=== PATIENT | male | born 1980 | race Caucasian/White ===

== ENCOUNTER 2024-06-01 11:51 | Inpatient (IN) | payer OTHER, SELFPAY ==
[2024-05-29 12:18] VITALS: BP 144/100
--- NOTE | 2024-05-29 12:20 | ED.GENMED ---
ED Provider Triage
<Scott Andrade PA-C - Last Filed: 05/29/24 12:21>
-
Patient seen by provider in Triage?: Seen in Triage
43-year-old male presents with severe low back pain radiating down the right leg. This has been getting worse since 6 days ago. He has a history of a lumbar fusion. He has always had pain down the right leg. He feels as though something came
loose with his fusion. He denies fever. No bowel or bladder dysfunction. No perianal anesthesia
Patient screaming and moaning in triage secondary to pain. Will check x-rays of lumbar spine Toradol IM ordered. Labs pending.
Patient received a medical screening assessment by healthcare provider at triage.
Patient does warrant further evaluation
History of Present Illness
<Scott Andrade PA-C - Last Filed: 05/29/24 12:21>
General
Chief Complaint: Back Pain
Time Seen by Provider: 05/29/24 15:07
<Jay Fletcher PA-C - Last Filed: 05/29/24 21:13>
History of Present Illness
History of Present Illness:
43-year-old male presents to the emergency department for evaluation of right low back pain rating down the right leg gradually worsening over the past week. Denies any acute injury. Denies loss of bladder or bowel function or saddle anesthesias.
Has been taking Tylenol and ibuprofen without relief. Prior history of thoracic spine fusion surgery, states that he had prior symptoms that were quite comparable to his current symptoms however due to his thoracic spine problem and not lumbar
spine, this was treated by [facility]
Past History
<Scott Andrade PA-C - Last Filed: 05/29/24 12:21>
Past History
ED Past Medical History: None
ED Past Surgical History: None
Social History
Living: with family
Review of Systems
<Jay Fletchre PA-C - Last Filed: 05/29/24 21:13>
Review of Systems
Allergies reviewed?: Yes
All Other Systems: ROS reviewed and negative except as documented in HPI and ROS
Phy Exam
<Jay Fletcher PA-C - Last Filed: 05/29/24 21:13>
Physical Exam
Physical Exam:
GEN: Well appearing, NAD, WDWN
HEENT: Oral mucosa moist, no scleral icterus
Cardiac: Regular rate
Lung: No respiratory distress, no tachypnea
MSK: No gross deformity or injuries
Skin: Good color, no pallor or jaundice, no rashes
Neuro: AO x3, moves all extremities freely
Psych: Calm, cooperative
Course
<Scott Andrade PA-C - Last Filed: 05/29/24 12:21>
Orders/Labs/Results
Orders:
Orders
05/29/24 12:18
CR Lumbar Spine 2 Or 3 Views Urgent
Comment:
Reason For Exam: back pain, history of fusion
05/29/24 12:19
Ketorolac [Toradol] 30 mg IM NOW STA
05/29/24 12:28
Complete Blood Count/With Diff Urgent
Comprehensive Metabolic Panel Urgent
05/29/24 Dinner
2000 calorie (17 carb) Diabetic
At Your Request: Full Participation
Does patient need a safe tray?: No
Reason for opting out of [employer] order writing: Provider Decision
05/29/24 15:40
Cyclobenzaprine HCl [Flexeril] 10 mg PO NOW STA
HYDROmorphone [Dilaudid] 1 mg IM NOW STA
05/29/24 16:34
HYDROmorphone [Dilaudid] 0.5 mg IV NOW STA
05/29/24 17:12
Dexamethasone Sod Phosphate [Decadron] 6 mg IV NOW STA
05/29/24 17:43
Admit/Transfer Patient As Directed
Co-Sign Provider:
Level of Care: Observation services
Assign to:: Medical/Surgical
Physician / Group: Barbara
Diagnosis: Intractable Back Pain
PRN Pain Medication Management As Directed
May give lesser potent ordered pain med per pt: Yes
preference::
Protocol:: Medication orders for pain may be administered in a
manner that supports deferring to patient preference
when the pt is:
- Requesting an ordered lesser potent pain medication.
Least to most potent pain medications are defined
as: acetaminophen < NSAID < tramadol < opioids
(morphine, oxycodone, hydromorphone).
- Requesting a lesser dose of the same medication IF
ORDERED.
- Requesting a less intrusive route of administration
if both routes are prescribed by the provider (PO <
IV).
05/29/24 17:44
Code Status As Directed
Resuscitation Status: Full Code
05/29/24 19:29
Acetaminophen [Tylenol] 650 mg PO Q4HPRN PRN
Dextrose 50%-Water [Dextrose 50% Syringe] 12.5 grams IV [id number] PRN
Glucagon [GlucaGen] 1 mg IM PRN PRN
HYDROmorphone [Dilaudid] 0.5 mg IV Q3HPRN PRN
Oxycodone [Roxicodone] 5 mg PO Q4HPRN PRN
05/29/24 19:29
MR Lumbar Without Contrast Routine
Comment:
Reason For Exam: back pain, right lower ext radiculopathy
Recent pill cam endoscopy?: No
MR Thoracic Spine Without Routine
Comment:
Reason For Exam: back pain, prior T10-T11 discectomy
Recent pill cam endoscopy?: No
Activity As Directed
Activity Level: Out of Bed-Early Mobility
With Assistance
Bedside Glucose Monitoring As Directed
Frequency: AC&HS
Additional Instructions:: Change to q6h if pt on TPN, tube feeding or not eating
Sequential Compression Device [Pneumatic Compression Sleeves] As Directed
Type: Knee high
Vital Signs As Directed
Frequency: Per unit guidelines
Ot Eval And Treat Routine
Pt Eval And Treat Routine
Activity Level: Out of Bed-Early Mobility
DX Deep Vein Thrombosis Video Routine
05/29/24 19:46
Ibuprofen [Motrin] 400 mg PO Q6HPRN PRN
05/30/24 06:00
Glycohemoglobin (HgbA1c) IN AM
05/30/24 07:30
Insulin Aspart Corrective Low [Novolog Flexpen-Low Resistance] See Protocol SC AC
05/30/24 08:00
Atorvastatin [Lipitor] 20 mg PO DAILY
Duloxetine Delayed Release [Cymbalta Delayed Release] 40 mg PO DAILY
Lidocaine [Lidocaine 4% Patch] 1 patch TOPICAL DAILY
Apply Lidocaine patch(s) to:: right low back
Lisinopril [Zestril] 20 mg PO DAILY
Metformin Extended Release [Glucophage Xr Extended Release] 1,000 mg PO DAILY
MethylPREDNISolone [Medrol] 24 mg PO ONCE ONE
Pantoprazole [Protonix] 40 mg PO DAILY
05/31/24 08:00
MethylPREDNISolone [Medrol] 20 mg PO ONCE ONE
06/01/24 08:00
MethylPREDNISolone [Medrol] 16 mg PO ONCE ONE
06/02/24 08:00
MethylPREDNISolone [Medrol] 12 mg PO ONCE ONE
06/03/24 08:00
MethylPREDNISolone [Medrol] 8 mg PO ONCE ONE
06/04/24 08:00
MethylPREDNISolone [Medrol] 4 mg PO ONCE ONE
Abnormal Lab Results
05/29/24
12:28
Absolute Neuts (auto) 6.7 H 10^3/uL
(1.4-6.5)
Glucose 155 H mg/dl
(70-99)
05/29/24 12:28
05/29/24 12:28
Vital Signs
Initial and Last Documented VS:
Initial Vital Signs
Temp Pulse Resp BP Pulse Ox
98.2 F 107 20 144/100 100
05/29/24 12:18 05/29/24 12:18 05/29/24 12:18 05/29/24 12:18 05/29/24 12:18
Last Documented Vital Signs
Temp Pulse Resp BP Pulse Ox
98.1 F 94 18 147/87 94
05/29/24 19:30 05/29/24 19:30 05/29/24 19:30 05/29/24 19:30 05/29/24 19:30
<Jay Fletcher PA-C - Last Filed: 05/29/24 21:13>
Orders/Labs/Results
Orders:
Orders
05/29/24 12:18
CR Lumbar Spine 2 Or 3 Views Urgent
Comment:
Reason For Exam: back pain, history of fusion
05/29/24 12:19
Ketorolac [Toradol] 30 mg IM NOW STA
05/29/24 12:28
Complete Blood Count/With Diff Urgent
Comprehensive Metabolic Panel Urgent
05/29/24 Dinner
2000 calorie (17 carb) Diabetic
At Your Request: Full Participation
Does patient need a safe tray?: No
Reason for opting out of [employer] order writing: Provider Decision
05/29/24 15:40
Cyclobenzaprine HCl [Flexeril] 10 mg PO NOW STA
HYDROmorphone [Dilaudid] 1 mg IM NOW STA
05/29/24 16:34
HYDROmorphone [Dilaudid] 0.5 mg IV NOW STA
05/29/24 17:12
Dexamethasone Sod Phosphate [Decadron] 6 mg IV NOW STA
05/29/24 17:43
Admit/Transfer Patient As Directed
Co-Sign Provider:
Level of Care: Observation services
Assign to:: Medical/Surgical
Physician / Group: Barbara
Diagnosis: Intractable Back Pain
PRN Pain Medication Management As Directed
May give lesser potent ordered pain med per pt: Yes
preference::
Protocol:: Medication orders for pain may be administered in a
manner that supports deferring to patient preference
when the pt is:
- Requesting an ordered lesser potent pain medication.
Least to most potent pain medications are defined
as: acetaminophen < NSAID < tramadol < opioids
(morphine, oxycodone, hydromorphone).
- Requesting a lesser dose of the same medication IF
ORDERED.
- Requesting a less intrusive route of administration
if both routes are prescribed by the provider (PO <
IV).
05/29/24 17:44
Code Status As Directed
Resuscitation Status: Full Code
05/29/24 19:29
Acetaminophen [Tylenol] 650 mg PO Q4HPRN PRN
Dextrose 50%-Water [Dextrose 50% Syringe] 12.5 grams IV [id number] PRN
Glucagon [GlucaGen] 1 mg IM PRN PRN
HYDROmorphone [Dilaudid] 0.5 mg IV Q3HPRN PRN
Oxycodone [Roxicodone] 5 mg PO Q4HPRN PRN
05/29/24 19:29
MR Lumbar Without Contrast Routine
Comment:
Reason For Exam: back pain, right lower ext radiculopathy
Recent pill cam endoscopy?: No
MR Thoracic Spine Without Routine
Comment:
Reason For Exam: back pain, prior T10-T11 discectomy
Recent pill cam endoscopy?: No
Activity As Directed
Activity Level: Out of Bed-Early Mobility
With Assistance
Bedside Glucose Monitoring As Directed
Frequency: AC&HS
Additional Instructions:: Change to q6h if pt on TPN, tube feeding or not eating
Sequential Compression Device [Pneumatic Compression Sleeves] As Directed
Type: Knee high
Vital Signs As Directed
Frequency: Per unit guidelines
Ot Eval And Treat Routine
Pt Eval And Treat Routine
Activity Level: Out of Bed-Early Mobility
DX Deep Vein Thrombosis Video Routine
05/29/24 19:46
Ibuprofen [Motrin] 400 mg PO Q6HPRN PRN
05/30/24 06:00
Glycohemoglobin (HgbA1c) IN AM
05/30/24 07:30
Insulin Aspart Corrective Low [Novolog Flexpen-Low Resistance] See Protocol SC AC
05/30/24 08:00
Atorvastatin [Lipitor] 20 mg PO DAILY
Duloxetine Delayed Release [Cymbalta Delayed Release] 40 mg PO DAILY
Lidocaine [Lidocaine 4% Patch] 1 patch TOPICAL DAILY
Apply Lidocaine patch(s) to:: right low back
Lisinopril [Zestril] 20 mg PO DAILY
Metformin Extended Release [Glucophage Xr Extended Release] 1,000 mg PO DAILY
MethylPREDNISolone [Medrol] 24 mg PO ONCE ONE
Pantoprazole [Protonix] 40 mg PO DAILY
05/31/24 08:00
MethylPREDNISolone [Medrol] 20 mg PO ONCE ONE
06/01/24 08:00
MethylPREDNISolone [Medrol] 16 mg PO ONCE ONE
06/02/24 08:00
MethylPREDNISolone [Medrol] 12 mg PO ONCE ONE
06/03/24 08:00
MethylPREDNISolone [Medrol] 8 mg PO ONCE ONE
06/04/24 08:00
MethylPREDNISolone [Medrol] 4 mg PO ONCE ONE
Abnormal Lab Results
05/29/24
12:28
Absolute Neuts (auto) 6.7 H 10^3/uL
(1.4-6.5)
Glucose 155 H mg/dl
(70-99)
05/29/24 12:28
05/29/24 12:28
Vital Signs
Initial and Last Documented VS:
Initial Vital Signs
Temp Pulse Resp BP Pulse Ox
98.2 F 107 20 144/100 100
05/29/24 12:18 05/29/24 12:18 05/29/24 12:18 05/29/24 12:18 05/29/24 12:18
Last Documented Vital Signs
Temp Pulse Resp BP Pulse Ox
98.1 F 94 18 147/87 94
05/29/24 19:30 05/29/24 19:30 05/29/24 19:30 05/29/24 19:30 05/29/24 19:30
<Jay Fletcher PA-C - Last Filed: 05/29/24 21:13>
MDM/Problems Addressed
MDM/Problems Addressed:
I am essentially unable to assess the patient due to his degree of pain. He does not have appear to have any lower extremity neurologic deficits but is unable to move the leg without excruciating pain throughout most of exam. He does have skin
paresthesias but no gross neurologic deficits. No hard signs of spinal cord compression that would warrant urgent MRI. After multiple rounds of opioids and NSAIDs his pain remained uncontrolled and he was unable to stand. Certainly his morbid
obesity plays a role in the symptoms. Unfortunately will require admission for further pain control.
<Jay Fletcher PA-C - Last Filed: 05/29/24 21:13>
*Critical Care Note
Total Time (30-74mins, 75-104mins- exclusive of procedures): Not Applicable
ED Attending Note
<Scott Andrade PA-C - Last Filed: 05/29/24 12:21>
-
Portions of this chart may have been created with voice recognition software.� Occasional wrong word or��sound alike� substitutions may have occurred due to the inherent limitations of voice recognition software.
Discharge Plan
Departure
Patient Disposition: Admit
Date of Disposition: 05/29/24
Time of Disposition: 17:12
Admit to: Med/Surg
Presentation/result/management discussed w/ accepting MD/DO: Hospitalist
Discharge Problem:
Intractable low back pain
Interventions
Interventions:
*Risk Screen - Suicide Last Done: 05/29/24 20:28
*General Assessment Last Done: 05/29/24 12:18
ED- Fall Risk Assessment Last Done: 05/29/24 14:30
*ED COVID-19 Vaccine History Last Done: 05/29/24 20:28
*Nursing Disposition Last Done: 05/29/24 19:31
ED-Musculoskeletal Assessment Last Done: 05/29/24 13:24
Discharge Date and Time
Discharge Date/Time: 05/29/24 19:31
[2024-05-29] MEDS: TORADOL 30 MG IM (12:29)
[2024-05-29 12:41] LABS: % Basophils 0.3 % (0-2); % Eosinophils 1.8 % (0-6); % Immature Granulocytes 0.4 % (0-0.5); % Lymphocytes 26.1 % (20.5-51.1); % Monocytes 3.5 % (1.7-9.3); % Neutrophils 67.9 % (42.2-75.2); Absolute Eosinophils 0.2 10^3/uL (0-0.7); Absolute Lymphocytes 2.6 10^3/uL (1.2-3.4); Absolute Monocytes 0.4 10^3/uL (0.1-0.6); Absolute Neutrophils 6.7 10^3/uL (1.4-6.5); Hematocrit 44.6 % (39.0-52.0); Mean Corp Hgb Conc. 33.6 g/dL (33.0-37.0); Mean Corpuscular Hgb 27.5 pg (27.0-31.0); Mean Corpuscular Volume 81.8 fL (80.0-94.0); Mean Platelet Volume 9.7 fL (7.4-10.4); Nucleated Red Blood Cells % 0 % (-); Platelet Count 308 10^3/uL (130-400); Red Blood Cell Count 5.45 10^6/uL (4.70-6.10); Red Cell Dist. Width 13.9 % (11.5-14.5); White Blood Cell Count 9.9 10^3/uL (4.8-10.8)
[2024-05-29 12:52] LABS: ALT (SGPT) 24 U/L (0-50); AST (SGOT) 24 U/L (17-59); Albumin 4.8 g/dl (3.5-5.0); Alkaline Phosphatase 101 U/L (38-126); Blood Urea Nitrogen 13 mg/dl (9-20); Calcium 10.1 mg/dl (8.4-10.2); Carbon Dioxide 23 mmol/L (22-30); Chloride 102 mmol/L (98-107); Glucose 155 mg/dl (70-99); Potassium 4.1 mmol/L (3.5-5.1); Sodium 140 mmol/L (135-145); Total Bilirubin 0.6 mg/dl (0.2-1.3); Total Protein 7.6 g/dl (6.3-8.2); eGFR > 60.00
[2024-05-29] MEDS: DILAUDID 1 MG IM (15:50)
[2024-05-29] MEDS: FLEXERIL 10 MG PO (15:50)
[2024-05-29] MEDS: DILAUDID 0.5 MG IV ×3 (16:39→23:38)
[2024-05-29] MEDS: DECADRON 6 MG IV (17:18)
[2024-05-29 17:20] VITALS: BP 150/79
--- NOTE | 2024-05-29 17:51 | HPS.HSE ---
Family Physician
-
Family Physician: Adis Lind
Chief Complaint
-
Intractable Back Pain
History of Present Illness
Patient is a 43 y/o male past medical history of hypertension, hyperlipidemia, diabetes mellitus, and prior T10-T11 discectomy/spinal canal decompression who presents with back pain radiating down the right leg. Patient reports since his prior
surgery he has always had some right low back pain with radiation down to the buttocks and right toes. He reports since last week the pain has been much worse. He notes when he tries to move the right leg, or puts weight on the leg he had severe
pain. He denies numbness or tingling. He denies saddle anesthesia, bowel/bladder incontinence.
Medical History
Past Medical History
Past Medical History: Reports Other
Additional Past Medical History:
Essential Hypertension
Hyperlipidemia
Diabetes Mellitus
Depression
GERD
Past Surgical History: Reports Other
Additional Past Surgical History:
T10-T11 Discectomy/Spinal Canal Decompression with multiple complications including pneumothorax, ileus/possible bowel perforation resulting in right hemicolectomy
Social History
Tobacco: Non-smoker
Alcohol: Former (Sober since 2021)
Family History
Family History: Not pertinent
Allergies / Home Medications
Allergies reflects when Allergies were last updated in [facility].
Home Medications with original date entered in [facility]
Allergy/Medication List:
Allergies
Allergy/AdvReac Type Severity Reaction Status Date / Time
No Known Allergies Allergy Verified 05/29/24 12:21
Home Medications
duloxetine 20 mg capsule,delayed release 40 mg PO DAILY 01/12/17
acetaminophen 500 mg tablet 1,000 mg PO Q6HPRN PRN mild pain 05/29/24
atorvastatin 20 mg tablet 20 mg PO DAILY 05/29/24
ibuprofen 200 mg tablet 200 mg PO Q6HPRN PRN mild pain 05/29/24
lisinopril 20 mg-hydrochlorothiazide 12.5 mg tablet 1 tab PO DAILY 05/29/24
metformin 500 mg tablet,extended release 24 hr 1,000 mg PO DAILY 05/29/24
omeprazole 20 mg capsule,delayed release 20 mg PO DAILY 05/29/24
Review of Systems
-
A 12 point ROS was completed and negative except as noted: Yes
Constitutional: Denies Fever or Chills
Respiratory: Denies Cough or Trouble Breathing
Cardiac: Denies Chest Pain or Palpitations
Musculoskeletal: Reports See HPI
Physical Exam
Vital Signs
Vital Signs
Temp Pulse Resp BP Pulse Ox
98.2 F 83 18 150/79 94
05/29/24 12:18 05/29/24 17:20 05/29/24 17:20 05/29/24 17:20 05/29/24 17:20
Physical Exam
General: Well Developed, Well Nourished, Pain (With Movement) and Obese
HEENT: Anicteric and Moist mucous membranes
Respiratory: Clear and Non Labored Respirations
Cardiac: S1/S2 and Regular Rhythm
GI: Soft
Rectal: Deferred by Provider
Musculoskeletal: No Clubbing, No Cyanosis, No Edema and Other (Mild tenderness to palpitation lumbar region; Movement of right leg causes worsening pain )
Skin: Warm and Dry
Neuro: Awake, Alert and Oriented
Psych: Calm
Laboratory Results
-
05/29/24 12:28
05/29/24 12:28
Laboratory Results
Total Bilirubin 0.6 mg/dl (0.2-1.3) 05/29/24 12:28
AST 24 U/L (17-59) 05/29/24 12:28
ALT 24 U/L (0-50) 05/29/24 12:28
Alkaline Phosphatase 101 U/L (38-126) 05/29/24 12:28
Data Reviewed
-
Diagnostic Radiology: Report Reviewed by me
Lab Data: Labs Reviewed by me
Impression/Plan
-
Intractable Back Pain with Radiculopathy, concerning for herniated disc
-Check Thoracic/Lumbar Spine MRI
-Continue steroids with Medrol Dose Pack
-Add Lidocaine Patch
-Continue ibuprofen for mild pain, oxycodone for moderate pain, and Dilaudid for severe
Essential Hypertension
-Continue lisinopril/HCTZ
Hyperlipidemia
-Continue atorvastatin
Diabetes Mellitus, Type II
-Continue metformin
-Monitor sugars and continue coverage insulin
Depression
-Continue duloxetine
GERD
-Continue Protonix
DVT proph: SCDs
Code Status: Full Code
--- NOTE | 2024-05-29 17:52 | W.PN.UPDATE ---
Update Note
Progress Note Update
This is an addendum to the H&P written by Ananya Christine on 05/29/2024. Patient seen and examined independently with PA.
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
hypertension, hyperlipidemia, diabetes presenting with acute on chronic severe right lower back pain rating down the right leg. No fever, bowel or bladder dysfunction or perianal anesthesia.
Strength and reflexes of lower extremities normal.
Lumbar spine x-ray shows chronic degenerative changes of the lumbar spine.
Patient with severe right-sided lumbar radiculopathy concerning for herniated disc. Patient given ketorolac, cyclobenzaprine, Dilaudid dexamethasone for pain. Check thoracic and lumbar MRI. Medrol Dosepak, ibuprofen, oxycodone, Dilaudid,
lidocaine patch for pain.
[2024-05-29 19:16] VITALS: BP 117/61
[2024-05-29 19:30] VITALS: BP 147/87; BMI 45.5
[2024-05-29 21:40] LABS: Glucose - Point of Care 198 mg/dl (70-99)
--- NOTE | 2024-05-29 22:46 | PTCARENOTE ---
Received pt from ED at changed of shift, awake, alert, oriented. Pt unable to stand and transfer due to right lower back and leg pain. Pt medicated for pain upon admission to unit. Skin intact. Vitals stable. Pt oriented to room and instructed to
call for assistance. Plan of care reviewed with pt. Pt currently resting more comfortably in bed, pain controlled.
[2024-05-29 23:00] VITALS: BP 147/80
[2024-05-29] MEDS: MOTRIN 400 MG PO (23:35)
[2024-05-30] MEDS: DILAUDID 0.5 MG IV ×3 (03:31→21:34)
--- NOTE | 2024-05-30 04:53 | PTCARENOTE ---
Pt had MRI, tolerated procedure. Increased lower back pain post MRI. Pt medicated for pain pre MRI. Pt currently resting in bed, ice applied to lower back per pt request.
[2024-05-30] MEDS: ROXICODONE 5 MG PO ×2 (05:22→14:47)
[2024-05-30 08:04] LABS: Glucose - Point of Care 134 mg/dl (70-99)
[2024-05-30] MEDS: NOVOLOG FLEXPEN-LOW RESISTANCE SC (08:07)
[2024-05-30 08:08] VITALS: BP 140/76
[2024-05-30] MEDS: CYMBALTA DELAYED RELEASE 40 MG PO (08:10)
[2024-05-30] MEDS: LIPITOR 20 MG PO (08:10)
[2024-05-30] MEDS: ORETIC 12.5 MG PO (08:10)
[2024-05-30] MEDS: PROTONIX 40 MG PO (08:10)
[2024-05-30] MEDS: GLUCOPHAGE XR EXTENDED RELEASE 1000 MG PO (08:10)
[2024-05-30] MEDS: ZESTRIL 20 MG PO (08:11)
[2024-05-30] MEDS: LIDOCAINE 4% PATCH 1 PATCH TOPICAL (08:11)
[2024-05-30] MEDS: MOTRIN 400 MG PO (08:12)
[2024-05-30 08:38] LABS: Glycohemoglobin (HgbA1c) 7.4 % (4.0-5.6)
[2024-05-30] MEDS: MEDROL 24 MG PO (08:58)
[2024-05-30 09:22] VITALS: BP 144/86; PULSE 93; O2SAT 99
[2024-05-30 09:57] VITALS: BP 144/86; PULSE 95; O2SAT 100
--- NOTE | 2024-05-30 10:36 | W.PN.HOSP.TC ---
Today's Communication/Plan
-
Await lumbar spine
Start gabapentin
Rehabilitation
Pain control
Assessment / Plan
Assessment / Plan
#Intractable Back Pain likely secondary to radiculopathy
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
-Lumbar spine MRI is pending.
-Thoracic spine MRI showed Chronic degenerative and postoperative changes of the thoracic spine. Findings appear relatively stable compared to the previous thoracic spine MRI from 02/07/2022.
-Continue steroids with Medrol Dose Pack
-Add Lidocaine Patch
-Continue ibuprofen for mild pain, oxycodone for moderate pain, and Dilaudid for severe
-starte gabapentin
Essential Hypertension
-Continue lisinopril/HCTZ
Hyperlipidemia
-Continue atorvastatin
Diabetes Mellitus, Type II
-hold metformin
-Monitor sugars and continue coverage insulin
-A1C 7.4
Depression
-Continue duloxetine
GERD
-Continue Protonix
Morbid obesity due to excess calories
-Would benefit from weight loss.
DVT proph: SCDs
Code Status: Full Code
d/w with family member at bedside
Anticipated Discharge: Within 24 hours
Subjective/Interval History
-
Date of Service: May 30, 2024
states of R side back pain radiating to thigh and knee
Objective Data
-
Vital Signs:
Vital Signs
Temp Pulse Resp BP Pulse Ox
97.6 F 92 16 140/76 98
05/30/24 08:08 05/30/24 08:08 05/30/24 08:08 05/30/24 08:11 05/30/24 08:08
I&O
05/29/24 05/30/24 05/31/24
06:59 06:59 06:59
Intake Total 480 / 480
Output Total 175 / 175
Balance 305 / 305
Physical Exam
-
General: Well Developed, Well Nourished, No Apparent Distress and Morbidly Obese
HEENT: Normocephalic, Atraumatic and Moist Mucous Membranes
Respiratory: Clear to Auscultation
Cardiac: Regular Rhythm and S1/S2; Negative Murmur, Rub or Gallop
GI: Soft, Nontender, Nondistended and Normal Bowel Sounds; Negative Organomegaly
Rectal: Deferred by Provider
Genito-urinary: Other
Musculoskeletal: No Clubbing, No Cyanosis, No Edema and Other (NO STEP OFF Thoraic/lumbar area. Non TTP paraspinal region. )
Skin: Negative Rash
Neuro: Awake, Alert, Oriented, AO x 3, No Motor Deficits and Nonfocal/Grossly Intact
Psych: Calm
Data Reviewed
-
Total Time Spent with Patient (in minutes): 55
[2024-05-30 12:30] LABS: Glucose - Point of Care 170 mg/dl (70-99)
[2024-05-30] MEDS: NEURONTIN 300 MG PO ×3 (13:36→21:35)
[2024-05-30] MEDS: NOVOLOG FLEXPEN-LOW RESISTANCE 1 UNITS SC ×2 (13:36→16:59)
--- NOTE | 2024-05-30 13:37 | CM ---
Patient seen bedside.
IA completed.
LOPES completed.
Spouse bedside.
Patient lives in 2 story home with 3 steps to enter.
Patient independent prior to admission, ambulates with RW or cane, does have WC in the home.
Patient had VN in the past, maybe [facility] or [facility].
Patient denies home care needs at this time.
[facility].
Spouse will transport home.
PCP: Dr Lind
Pharmacy: [facility]
Plan: home no needs anticipated.
--- NOTE | 2024-05-30 14:05 | PTCARENOTE ---
Received pt from 1 acute care via stretcher. Pt ambulated to bed independently with walking sticks. HR and BP elevated, will recheck. AAOX3. Pt c/o pain throughout right side lower back that radiates down right leg and up right side of back, pt able
to tolerate. Assessed and oriented to room. Pt verbalized understanding of call eubanks. Call eubanks within close reach. Will cont to monitor.
[2024-05-30 14:09] VITALS: BMI 44.9
[2024-05-30 14:13] VITALS: BP 153/93
[2024-05-30 16:17] LABS: Glucose - Point of Care 166 mg/dl (70-99)
[2024-05-30 16:32] VITALS: BP 129/84
[2024-05-30 21:42] LABS: Glucose - Point of Care 160 mg/dl (70-99)
[2024-05-30 23:40] VITALS: BP 139/77
[2024-05-31 07:34] VITALS: BP 155/95
[2024-05-31 08:27] LABS: Glucose - Point of Care 115 mg/dl (70-99)
[2024-05-31] MEDS: LIDOCAINE 4% PATCH TOPICAL (09:42)
[2024-05-31] MEDS: CYMBALTA DELAYED RELEASE 40 MG PO (09:42)
[2024-05-31] MEDS: ORETIC 12.5 MG PO (09:43)
[2024-05-31] MEDS: NEURONTIN 300 MG PO (09:43)
[2024-05-31] MEDS: ZESTRIL 20 MG PO (09:43)
[2024-05-31] MEDS: PROTONIX 40 MG PO (09:43)
[2024-05-31] MEDS: LIPITOR 20 MG PO (09:43)
[2024-05-31] MEDS: ROXICODONE 5 MG PO ×3 (09:48→20:23)
[2024-05-31] MEDS: MEDROL 20 MG PO (09:50)
[2024-05-31] MEDS: NOVOLOG FLEXPEN-LOW RESISTANCE SC (10:02)
[2024-05-31] MEDS: DILAUDID 0.5 MG IV ×2 (10:42→16:47)
[2024-05-31] MEDS: MOTRIN 400 MG PO ×2 (10:43→16:47)
[2024-05-31 11:44] LABS: Glucose - Point of Care 162 mg/dl (70-99)
--- NOTE | 2024-05-31 12:24 | W.PN.HOSP.TC ---
Today's Communication/Plan
-
Pain control
Out of bed with physical therapy
Bowel regimen
Increase Neurontin
PT/OT
Assessment / Plan
Assessment / Plan
#Intractable Back Pain likely secondary to lumbar radiculopathy 2/2 discogenic disease
#thoracic/lumbar disc protrusions status post T10-11 discectomy and partial corpectomy in 2021 at [place]
-Lumbar spine MRI reviewed
-Thoracic spine MRI showed Chronic degenerative and postoperative changes of the thoracic spine. Findings appear relatively stable compared to the previous thoracic spine MRI from 02/07/2022
-Continue steroids with Medrol Dose Pack. Monitor for 24 hours. If no improvement can probably stop steroids.
-Offered patient to discuss epidural injection. Patient currently stated he had tried that in the past without any significant improvement.
-Add Lidocaine Patch
-Continue ibuprofen for mild pain, oxycodone for moderate pain, and Dilaudid for severe
-Started on Neurontin. Dose increased to 40 mg.
Essential Hypertension
-Continue lisinopril/HCTZ
Hyperlipidemia
-Continue atorvastatin
Diabetes Mellitus, Type II
-hold metformin
-Monitor sugars and continue coverage insulin
-A1C 7.4
Depression
-Continue duloxetine
GERD
-Continue Protonix
Morbid obesity due to excess calories
-Would benefit from weight loss.
DVT proph: SCDs
Code Status: Full Code
Anticipated Discharge: Within 24 hours
Subjective/Interval History
-
Date of Service: May 31, 2024
States of intermittent R thigh pain radiating to knee from back
Objective Data
-
Vital Signs:
Vital Signs
Temp Pulse Resp BP Pulse Ox
97.5 F 82 19 155/95 97
05/31/24 07:34 05/31/24 07:34 05/31/24 07:34 05/31/24 07:34 05/31/24 07:34
I&O
05/30/24 05/31/24 06/01/24
06:59 06:59 06:59
Intake Total 480 / 480 800 / 800
Output Total 175 / 175
Balance 305 / 305 800 / 800
Physical Exam
-
General: Well Developed, Well Nourished, No Apparent Distress and Morbidly Obese
HEENT: Normocephalic, Atraumatic and Moist Mucous Membranes
Respiratory: Clear to Auscultation
Cardiac: Regular Rhythm and S1/S2; Negative Murmur, Rub or Gallop
GI: Soft, Nontender, Nondistended and Normal Bowel Sounds; Negative Organomegaly
Rectal: Deferred by Provider
Genito-urinary: Other
Musculoskeletal: No Clubbing, No Cyanosis, No Edema and Other (NO STEP OFF Thoraic/lumbar area. Non TTP paraspinal region. )
Skin: Negative Rash
Neuro: Awake, Alert, Oriented, AO x 3, No Motor Deficits and Nonfocal/Grossly Intact
Psych: Calm
Data Reviewed
-
MRI: Report Reviewed by me and Discussed with Patient
[2024-05-31] MEDS: DULCOLAX 10 MG PO (12:48)
[2024-05-31] MEDS: SENOKOT-S 1 TABLET PO ×2 (12:48→20:21)
[2024-05-31] MEDS: NOVOLOG FLEXPEN-LOW RESISTANCE 1 UNITS SC (12:50)
[2024-05-31] MEDS: FLEXERIL 10 MG PO (12:55)
[2024-05-31 15:07] VITALS: BP 149/85
[2024-05-31 16:43] LABS: Glucose - Point of Care 257 mg/dl (70-99)
[2024-05-31] MEDS: NEURONTIN 400 MG PO ×2 (16:47→22:02)
[2024-05-31] MEDS: NOVOLOG FLEXPEN-LOW RESISTANCE 3 UNITS SC (16:49)
--- NOTE | 2024-05-31 19:38 | PTCARENOTE ---
RN provided patient with education on all medications, pain management, and plan of care this shift. RN also explained PRN medications versus scheduled medication administration, specifically for pain medication. Patient was consistently in 8/10
right leg pain for the first half of the shift. RN reached out to MD for a 1x order for Flexeril, as patient felt that this might help. RN gave PRN ibuprofen, Dilaudid, and oxycodone per order and according to patients pain all shift. Of note,
patient took 2 long naps and vocalized that he 'missed' his pain medication administration. RN told patient that if he is able to sleep, opioid administration is not a safe practice, as they can cause sedation.
[2024-05-31 21:04] LABS: Glucose - Point of Care 182 mg/dl (70-99)
[2024-05-31 23:45] VITALS: BP 143/85
[2024-06-01] MEDS: ROXICODONE 5 MG PO ×3 (00:29→08:31)
[2024-06-01 08:00] VITALS: BP 124/84
[2024-06-01] MEDS: NOVOLOG FLEXPEN-LOW RESISTANCE SC ×3 (08:08→18:12)
[2024-06-01 08:12] LABS: Glucose - Point of Care 127 mg/dl (70-99)
[2024-06-01] MEDS: PROTONIX 40 MG PO (08:17)
[2024-06-01] MEDS: CYMBALTA DELAYED RELEASE 40 MG PO (08:17)
[2024-06-01] MEDS: SENOKOT-S 1 TABLET PO ×2 (08:18→21:12)
[2024-06-01] MEDS: GLUCOPHAGE XR EXTENDED RELEASE 1000 MG PO (08:18)
[2024-06-01] MEDS: ZESTRIL 20 MG PO (08:18)
[2024-06-01] MEDS: LIPITOR 20 MG PO (08:19)
[2024-06-01] MEDS: ORETIC 12.5 MG PO (08:19)
[2024-06-01] MEDS: NEURONTIN 400 MG PO (08:19)
[2024-06-01] MEDS: LIDOCAINE 4% PATCH TOPICAL (08:20)
[2024-06-01] MEDS: MEDROL 16 MG PO (08:28)
[2024-06-01 08:44] VITALS: BP 107/76
[2024-06-01 09:28] LABS: Blood Urea Nitrogen 22 mg/dl (9-20); Calcium 8.8 mg/dl (8.4-10.2); Carbon Dioxide 31 mmol/L (22-30); Chloride 99 mmol/L (98-107); Estimated Creatinine Clearance > 125 ml/min; Glucose 134 mg/dl (70-99); Potassium 4.2 mmol/L (3.5-5.1); Sodium 138 mmol/L (135-145); eGFR > 60.00
[2024-06-01 11:24] LABS: Glucose - Point of Care 136 mg/dl (70-99)
--- NOTE | 2024-06-01 11:44 | W.PN.HOSP.TC ---
Today's Communication/Plan
-
dc steroids/gabapentin
cont duloxetine
added flexeril
bowel regimen
Assessment / Plan
Assessment / Plan
#Intractable Back Pain likely secondary to lumbar radiculopathy 2/2 discogenic disease
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
-Lumbar spine MRI reviewed
-Thoracic spine MRI showed Chronic degenerative and postoperative changes of the thoracic spine. Findings appear relatively stable compared to the previous thoracic spine MRI from 02/07/2022
-Does not seem steroids was helping-Dced.
-Offered patient to discuss epidural injection. Patient currently stated he had tried that in the past without any significant improvement.
-Add Lidocaine Patch
-Continue ibuprofen for mild pain, oxycodone for moderate pain, and Dilaudid for severe
-Dced neurotonin. Started flexeril
Essential Hypertension
-Continue lisinopril/HCTZ. Cr stable at 0.9
Hyperlipidemia
-Continue atorvastatin
Diabetes Mellitus, Type II
-hold metformin
-Monitor sugars and continue coverage insulin
-A1C 7.4
Depression
-Continue duloxetine
GERD
-Continue Protonix
Morbid obesity due to excess calories
-Would benefit from weight loss.
DVT proph: SCDs
Code Status: Full Code
Anticipated Discharge: Within 24 hours
Subjective/Interval History
-
Date of Service: June 01, 2024
States of R hip muscular pain after walking
states of back pain
patient remains in bed
Objective Data
-
Labs:
Laboratory Results
06/01/24
09:05
Sodium 138
Potassium 4.2
Chloride 99
Carbon Dioxide 31 H
BUN 22 H
Creatinine 0.9
Glucose 134 H
Calcium 8.8
Vital Signs:
Vital Signs
Temp Pulse Resp BP Pulse Ox
97.9 F 101 20 107/76 98
06/01/24 08:44 06/01/24 08:44 06/01/24 08:44 06/01/24 08:44 06/01/24 08:44
I&O
05/31/24 06/01/24 06/02/24
06:59 06:59 06:59
Intake Total 800 / 800 480 / 480
Balance 800 / 800 480 / 480
Physical Exam
-
General: Well Developed, Well Nourished, No Apparent Distress, Morbidly Obese and Other (disshelved )
HEENT: Normocephalic, Atraumatic and Moist Mucous Membranes
Respiratory: Clear to Auscultation
Cardiac: Regular Rhythm and S1/S2; Negative Murmur, Rub or Gallop
GI: Soft, Nontender, Nondistended and Normal Bowel Sounds; Negative Organomegaly
Rectal: Deferred by Provider
Genito-urinary: Other
Musculoskeletal: No Clubbing, No Cyanosis, No Edema and Other (NO STEP OFF Thoraic/lumbar area. Non TTP paraspinal region. )
Skin: Negative Rash
Neuro: Awake, Alert, Oriented, AO x 3, No Motor Deficits and Nonfocal/Grossly Intact
Psych: Calm
Data Reviewed
-
Total Time Spent with Patient (in minutes): 52
[2024-06-01] MEDS: MILK OF MAGNESIA 30 ML PO (11:58)
[2024-06-01] MEDS: DILAUDID 0.5 MG IV (11:58)
[2024-06-01] MEDS: ROXICODONE 7.5 MG PO ×2 (15:46→20:03)
[2024-06-01] MEDS: FLEXERIL 10 MG PO ×2 (15:49→21:12)
[2024-06-01 16:36] VITALS: BP 167/89
[2024-06-01] MEDS: LOVENOX 40 MG SC (17:47)
--- NOTE | 2024-06-01 17:54 | PTCARENOTE ---
Patient administered PRN pain meds throughout shift for back and R leg pain. Worked with PT during shift. MD aware of patients continued c/o pain- new order for hip X ray.
[2024-06-01 18:04] LABS: Glucose - Point of Care 121 mg/dl (70-99)
[2024-06-01 21:11] LABS: Glucose - Point of Care 162 mg/dl (70-99)
[2024-06-01 23:25] VITALS: BP 111/76
[2024-06-02] MEDS: ROXICODONE 7.5 MG PO ×4 (00:13→20:27)
[2024-06-02 07:11] LABS: Glucose - Point of Care 128 mg/dl (70-99)
[2024-06-02] MEDS: NOVOLOG FLEXPEN-LOW RESISTANCE SC ×3 (07:12→17:38)
[2024-06-02 08:16] VITALS: BP 124/83
[2024-06-02] MEDS: LIDOCAINE 4% PATCH TOPICAL (08:27)
[2024-06-02] MEDS: SENOKOT-S 1 TABLET PO ×2 (08:32→20:28)
[2024-06-02] MEDS: GLUCOPHAGE XR EXTENDED RELEASE 1000 MG PO (08:32)
[2024-06-02] MEDS: FLEXERIL 10 MG PO ×3 (08:32→21:47)
[2024-06-02] MEDS: ORETIC 12.5 MG PO (08:32)
[2024-06-02] MEDS: CYMBALTA DELAYED RELEASE 40 MG PO (08:32)
[2024-06-02] MEDS: PROTONIX 40 MG PO (08:32)
[2024-06-02] MEDS: LIPITOR 20 MG PO (08:32)
[2024-06-02] MEDS: ZESTRIL 20 MG PO (08:33)
[2024-06-02 12:00] LABS: Glucose - Point of Care 121 mg/dl (70-99)
--- NOTE | 2024-06-02 12:49 | W.PN.HOSP.TC ---
Today's Communication/Plan
-
pain control
bowel regimen
OOB/PT
IRAD for PING
Assessment / Plan
Assessment / Plan
#Intractable Back Pain likely secondary to lumbar radiculopathy 2/2 discogenic disease
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
-Lumbar spine MRI reviewed
-Thoracic spine MRI showed Chronic degenerative and postoperative changes of the thoracic spine. Findings appear relatively stable compared to the previous thoracic spine MRI from 02/07/2022
-Does not seem steroids was helping-Dced.
-Add Lidocaine Patch
-Continue ibuprofen for mild pain, oxycodone for moderate pain , and Dilaudid for severe
-Dced neurotonin. Started flexeril 10mg TID.
-R Hip xray negative for fracture.
-After much prolonged discussion patient did agree to undergo epidural steroid injection as patient with not significant improvement with conservative measures. Which he initially refused. Now patient is agreeable and amenable. [facility] consulted
for PING. Per IRAD likely tomm.
-Recommend to continue with OOB/PT/Sit in chair.
Essential Hypertension
-Continue lisinopril/HCTZ. Cr stable at 0.9
Hyperlipidemia
-Continue atorvastatin
Diabetes Mellitus, Type II
-hold metformin
-Monitor sugars and continue coverage insulin
-A1C 7.4
Depression
-Continue duloxetine
GERD
-Continue Protonix
Morbid obesity due to excess calories
-Would benefit from weight loss. Affects all aspects of medical care.
DVT proph: SCDs/lovenox
Code Status: Full Code
Anticipated Discharge: 24 - 48 hours
Subjective/Interval History
-
Date of Service: June 02, 2024
states had bm earlier today
was unable to move on toilet and needed assistance.
states remains with R side back pain wtih radiation to knee
Objective Data
-
Vital Signs:
Vital Signs
Temp Pulse Resp BP Pulse Ox
97.6 F 102 18 124/83 96
06/02/24 08:16 06/02/24 08:16 06/02/24 08:16 06/02/24 08:16 06/02/24 08:16
I&O
06/01/24 06/02/24 06/03/24
06:59 06:59 06:59
Intake Total 480 / 480 1420 / 1420
Output Total 100 / 100
Balance 480 / 480 1320 / 1320
Physical Exam
-
General: Well Developed, Well Nourished, No Apparent Distress, Morbidly Obese and Other (disshelved )
HEENT: Normocephalic, Atraumatic and Moist Mucous Membranes
Respiratory: Clear to Auscultation
Cardiac: Regular Rhythm and S1/S2; Negative Murmur, Rub or Gallop
GI: Soft, Nontender, Nondistended and Normal Bowel Sounds; Negative Organomegaly
Rectal: Deferred by Provider
Genito-urinary: Other
Musculoskeletal: No Clubbing, No Cyanosis, No Edema and Other (NO STEP OFF Thoraic/lumbar area. Non TTP paraspinal region. )
Skin: Negative Rash
Neuro: Awake, Alert, Oriented, AO x 3, No Motor Deficits and Nonfocal/Grossly Intact
Psych: Calm
Data Reviewed
-
Total Time Spent with Patient (in minutes): 51
[2024-06-02 16:28] VITALS: BP 125/76
[2024-06-02] MEDS: LOVENOX 40 MG SC (17:13)
[2024-06-02] MEDS: TYLENOL 1000 MG PO ×2 (17:13→21:47)
[2024-06-02 17:42] LABS: Glucose - Point of Care 142 mg/dl (70-99)
[2024-06-02 21:43] LABS: Glucose - Point of Care 125 mg/dl (70-99)
[2024-06-02 22:54] VITALS: BP 112/70
[2024-06-03] MEDS: ROXICODONE 7.5 MG PO ×4 (03:37→18:46)
[2024-06-03 06:49] VITALS: BP 98/65
[2024-06-03 07:21] LABS: % Basophils 0.3 % (0-2); % Eosinophils 0.6 % (0-6); % Immature Granulocytes 0.5 % (0-0.5); % Lymphocytes 16.4 % (20.5-51.1); % Monocytes 5.2 % (1.7-9.3); Absolute Eosinophils 0.1 10^3/uL (0-0.7); Absolute Immature Granulocytes 0.1 10^3/uL (0-0.05); Absolute Lymphocytes 2.1 10^3/uL (1.2-3.4); Absolute Monocytes 0.7 10^3/uL (0.1-0.6); Absolute Neutrophils 9.7 10^3/uL (1.4-6.5); Hematocrit 46.3 % (39.0-52.0); Hemoglobin 15.2 g/dL (13.0-18.0); Mean Corp Hgb Conc. 32.8 g/dL (33.0-37.0); Mean Corpuscular Hgb 27.8 pg (27.0-31.0); Mean Corpuscular Volume 84.8 fL (80.0-94.0); Mean Platelet Volume 9.9 fL (7.4-10.4); Nucleated Red Blood Cells % 0 % (-); Platelet Count 280 10^3/uL (130-400); Red Blood Cell Count 5.46 10^6/uL (4.70-6.10); White Blood Cell Count 12.5 10^3/uL (4.8-10.8)
[2024-06-03 07:29] LABS: INR 0.99; PT 13.4 Sec (11.4-14.6)
[2024-06-03 07:36] LABS: Glucose - Point of Care 134 mg/dl (70-99)
[2024-06-03] MEDS: NOVOLOG FLEXPEN-LOW RESISTANCE SC ×2 (07:42→11:51)
[2024-06-03] MEDS: GLUCOPHAGE XR EXTENDED RELEASE 1000 MG PO (07:43)
[2024-06-03] MEDS: CYMBALTA DELAYED RELEASE 40 MG PO (07:43)
[2024-06-03] MEDS: PROTONIX 40 MG PO (07:44)
[2024-06-03] MEDS: ORETIC 12.5 MG PO (07:44)
[2024-06-03] MEDS: FLEXERIL 10 MG PO ×3 (07:44→21:06)
[2024-06-03] MEDS: LIPITOR 20 MG PO (07:44)
[2024-06-03] MEDS: ZESTRIL 20 MG PO (07:45)
[2024-06-03] MEDS: SENOKOT-S 1 TABLET PO (07:45)
[2024-06-03] MEDS: TYLENOL 1000 MG PO ×3 (07:45→21:06)
[2024-06-03 07:49] LABS: Blood Urea Nitrogen 24 mg/dl (9-20); Calcium 8.8 mg/dl (8.4-10.2); Carbon Dioxide 27 mmol/L (22-30); Chloride 97 mmol/L (98-107); Estimated Creatinine Clearance > 125 ml/min; Glucose 147 mg/dl (70-99); Potassium 4.3 mmol/L (3.5-5.1); Sodium 136 mmol/L (135-145); eGFR > 60.00
[2024-06-03 07:50] VITALS: BP 123/84
[2024-06-03] MEDS: LIDOCAINE 4% PATCH TOPICAL (08:00)
[2024-06-03 11:36] LABS: Glucose - Point of Care 140 mg/dl (70-99)
[2024-06-03 14:55] VITALS: BP 137/91
[2024-06-03 14:59] VITALS: BP 117/82; BP_SYST 113
[2024-06-03 15:39] VITALS: BP 125/92
--- NOTE | 2024-06-03 16:11 | W.PN.HOSP.TC ---
Today's Communication/Plan
-
Plan for IR epidural steroid injection
Continue as needed analgesia
Continue lidocaine patch and Flexeril
Assessment / Plan
Assessment / Plan
#Intractable back pain secondary to radiculitis
#Thoracico-lumbar disc protrusions s/p T10-11 discectomy and partial corpectomy (2021)
-Lumbar and thoracic MRIs reviewed; showed chronic degenerative and postoperative changes of the thoracic spine that were relatively stable
-Was temporarily on steroid regimen though did not seem beneficial, now DC'd; gabapentin also DC'd
-Current regimen includes ibuprofen/oxycodone/Dilaudid on as needed basis
-Remains on lidocaine patch and standing dose Flexeril 10 mg 3 times daily
-IR consulted for epidural steroid injection, possibly today versus tomorrow
-Continue with current pain regimen pending PING
#Leukocytosis
-Likely secondary to demargination from previous steroid regimen
-Will continue to trend CBC, monitor for fevers
-No indication for antibiotics as of now
#Essential hypertension
-Home regimen includes lisinopril and hydrochlorothiazide
-No known history of hypertensive systemic disease
-Blood pressure currently well-controlled despite pain
#Dyslipidemia
-No known history of ASCVD, Home medicines include atorvastatin
#T2DM
-NIDDM, recent A1c 7.4%; Home medications include metformin
-Metformin held on arrival, currently on ISS with Accu-Cheks
-BG goal 100-200, no longer on steroid
#GERD
-No known history of Monge's esophagus or erosive disease
-Home medications include oral Protonix
#Depression
-Home medications include SNRI, may be beneficial for neuropathic spine pain
#Morbid obesity due to excess calories
-Encouraged dietary modifications and exercise
-Impacts all aspects of medical care
DVT prophylaxis: Lovenox
Diet: Carbohydrate controlled
CODE STATUS: Full code
Anticipated Discharge: Within 24 hours
Subjective/Interval History
-
Date of Service: June 03, 2024
Seen and examined at bedside. No acute events reported overnight. AFVSS this morning
States he feels improved though still has significant pain that includes sharp radiating pain down the right leg
Denies any acute complaints today
Objective Data
-
Labs:
Laboratory Results
06/03/24
06:37
WBC 12.5 H
Hgb 15.2
Hct 46.3
Plt Count 280
PT 13.4
INR 0.99
Sodium 136
Potassium 4.3
Chloride 97 L
Carbon Dioxide 27
BUN 24 H
Creatinine 0.8
Glucose 147 H
Calcium 8.8
Vital Signs:
Vital Signs
Temp Pulse Resp BP Pulse Ox
98.1 F 109 19 125/92 98
06/03/24 14:59 06/03/24 15:39 06/03/24 15:39 06/03/24 15:39 06/03/24 14:59
I&O
06/02/24 06/03/24 06/04/24
06:59 06:59 06:59
Intake Total 1420 / 1420 480 / 480
Output Total 100 / 100
Balance 1320 / 1320 480 / 480
Review of Systems
-
History Source: Patient
All other systems: Reviewed and negative
Physical Exam
-
General: No Apparent Distress, Pain and Morbidly Obese
HEENT: Normocephalic, Atraumatic, Moist Mucous Membranes and Anicteric
Respiratory: Clear to Auscultation and Non Labored Respirations
Cardiac: Regular Rhythm and S1/S2; Negative Murmur, Rub or Gallop
GI: Soft, Nontender, Nondistended and Normal Bowel Sounds
Musculoskeletal: No Clubbing, No Cyanosis and No Edema
Skin: Warm, Dry and Normal Turgor; Negative Rash
Neuro: AO x 3, Nonfocal/Grossly Intact and Other (Limited exam secondary to radicular pain)
Psych: Calm
Data Reviewed
-
Labs: Labs Reviewed by me, Discussed with Nurse and Discussed with Patient
[2024-06-03 17:10] LABS: Glucose - Point of Care 195 mg/dl (70-99)
[2024-06-03] MEDS: LOVENOX 40 MG SC (17:55)
[2024-06-03] MEDS: NOVOLOG FLEXPEN-LOW RESISTANCE 1 UNITS SC (18:01)
[2024-06-03] MEDS: SENOKOT-S PO (20:01)
[2024-06-03 21:25] LABS: Glucose - Point of Care 257 mg/dl (70-99)
[2024-06-03 23:00] VITALS: BP 122/65
[2024-06-04] MEDS: ROXICODONE 7.5 MG PO ×3 (01:08→10:52)
[2024-06-04 07:29] VITALS: BP 148/88
[2024-06-04 07:37] LABS: % Basophils 0.1 % (0-2); % Immature Granulocytes 0.6 % (0-0.5); % Monocytes 1.2 % (1.7-9.3); % Neutrophils 90.1 % (42.2-75.2); Absolute Immature Granulocytes 0.1 10^3/uL (0-0.05); Absolute Lymphocytes 1.1 10^3/uL (1.2-3.4); Absolute Monocytes 0.2 10^3/uL (0.1-0.6); Absolute Neutrophils 12.9 10^3/uL (1.4-6.5); Hematocrit 45.6 % (39.0-52.0); Hemoglobin 14.9 g/dL (13.0-18.0); Mean Corp Hgb Conc. 32.7 g/dL (33.0-37.0); Mean Corpuscular Hgb 27.3 pg (27.0-31.0); Mean Corpuscular Volume 83.5 fL (80.0-94.0); Nucleated Red Blood Cells % 0 % (-); Platelet Count 307 10^3/uL (130-400); Red Blood Cell Count 5.46 10^6/uL (4.70-6.10); Red Cell Dist. Width 13.7 % (11.5-14.5); White Blood Cell Count 14.3 10^3/uL (4.8-10.8)
[2024-06-04 07:50] LABS: Blood Urea Nitrogen 22 mg/dl (9-20); Calcium 9.1 mg/dl (8.4-10.2); Carbon Dioxide 25 mmol/L (22-30); Chloride 96 mmol/L (98-107); Estimated Creatinine Clearance > 125 ml/min; Glucose 184 mg/dl (70-99); Potassium 4.9 mmol/L (3.5-5.1); Sodium 135 mmol/L (135-145); eGFR > 60.00
[2024-06-04 08:03] LABS: Glucose - Point of Care 163 mg/dl (70-99)
[2024-06-04] MEDS: FLEXERIL 10 MG PO (09:08)
[2024-06-04] MEDS: ZESTRIL 20 MG PO (09:08)
[2024-06-04] MEDS: LIPITOR 20 MG PO (09:10)
[2024-06-04] MEDS: GLUCOPHAGE XR EXTENDED RELEASE 1000 MG PO (09:10)
[2024-06-04] MEDS: ORETIC 12.5 MG PO (09:10)
[2024-06-04] MEDS: TYLENOL 1000 MG PO (09:10)
[2024-06-04] MEDS: CYMBALTA DELAYED RELEASE 40 MG PO (09:11)
[2024-06-04] MEDS: PROTONIX 40 MG PO (09:11)
[2024-06-04] MEDS: SENOKOT-S PO (09:12)
[2024-06-04] MEDS: LIDOCAINE 4% PATCH TOPICAL (09:12)
[2024-06-04] MEDS: NOVOLOG FLEXPEN-LOW RESISTANCE 1 UNITS SC (09:14)
[2024-06-04 11:28] VITALS: BP 127/89; PULSE 113; O2SAT 96
[2024-06-04 11:29] VITALS: BP 127/89; PULSE 113; O2SAT 96
--- NOTE | 2024-06-04 11:29 | W.PN.HOSP.TC ---
Today's Communication/Plan
-
Discharge home
Assessment / Plan
Assessment / Plan
#Intractable back pain secondary to radiculitis
#Thoracico-lumbar disc protrusions s/p T10-11 discectomy and partial corpectomy (2021)
-Lumbar and thoracic MRIs reviewed; showed chronic degenerative and postoperative changes of the thoracic spine that were relatively stable
-Was temporarily on steroid regimen though did not seem beneficial, now DC'd; gabapentin also DC'd
-Current regimen includes ibuprofen/oxycodone/Dilaudid on as needed basis
-Remains on lidocaine patch and standing dose Flexeril 10 mg 3 times daily
-IR consulted for epidural steroid injection, possibly today versus tomorrow
-S/p PING on 06/03/2024 with interventional
-Referral provided for pain management outpatient follow-up
-Will prescribe 5-day course of oxycodone at discharge
-Continue with Flexeril at discharge
#Leukocytosis
-Likely secondary to demargination from previous steroid regimen
-Will continue to trend CBC, monitor for fevers
-No indication for antibiotics as of now
#Essential hypertension
-Home regimen includes lisinopril and hydrochlorothiazide
-No known history of hypertensive systemic disease
-Blood pressure currently well-controlled despite pain
#Dyslipidemia
-No known history of ASCVD, Home medicines include atorvastatin
#T2DM
-NIDDM, recent A1c 7.4%; Home medications include metformin
-Metformin held on arrival, currently on ISS with Accu-Cheks
-BG goal 100-200, no longer on steroid
#GERD
-No known history of Monge's esophagus or erosive disease
-Home medications include oral Protonix
#Depression
-Home medications include SNRI, may be beneficial for neuropathic spine pain
#Morbid obesity due to excess calories
-Encouraged dietary modifications and exercise
-Impacts all aspects of medical care
DVT prophylaxis: Lovenox
Diet: Carbohydrate controlled
CODE STATUS: Full code
Anticipated Discharge: Today
Subjective/Interval History
-
Date of Service: June 04, 2024
Seen and examined the bedside. No acute events reported overnight. AFVSS this
Had PING with interventional radiology yesterday. States that his pain is improved as of today. States he is ready to go home
Denies any acute complaints
Objective Data
-
Labs:
Laboratory Results
06/04/24
06:38
WBC 14.3 H
Hgb 14.9
Hct 45.6
Plt Count 307
Sodium 135
Potassium 4.9
Chloride 96 L
Carbon Dioxide 25
BUN 22 H
Creatinine 0.8
Glucose 184 H
Calcium 9.1
Vital Signs:
Vital Signs
Temp Pulse Resp BP Pulse Ox
98.6 F 91 18 148/88 96
06/04/24 07:29 06/04/24 07:29 06/04/24 07:29 06/04/24 09:08 06/04/24 09:15
I&O
06/03/24 06/04/24 06/05/24
06:59 06:59 06:59
Intake Total 480 / 480 780 / 780
Balance 480 / 480 780 / 780
Review of Systems
-
History Source: Patient
All other systems: Reviewed and negative
Physical Exam
-
General: Well Developed, No Apparent Distress, Comfortable and Morbidly Obese
HEENT: Normocephalic, Atraumatic, Moist Mucous Membranes and Anicteric
Respiratory: Clear to Auscultation and Non Labored Respirations
Cardiac: Regular Rhythm and S1/S2; Negative Murmur, Rub or Gallop
GI: Soft, Nontender, Nondistended and Normal Bowel Sounds
Musculoskeletal: No Clubbing, No Cyanosis and No Edema
Skin: Warm; Negative Rash
Neuro: AO x 3 and Nonfocal/Grossly Intact; Negative No Motor Deficits
Psych: Calm
Data Reviewed
-
Labs: Labs Reviewed by me and Discussed with Patient
[2024-06-04 11:38] LABS: Glucose - Point of Care 142 mg/dl (70-99)
--- NOTE | 2024-06-04 12:12 | CM ---
Received notification that patient is medically cleared for discharge. Met with patient who confirmed that his fiancee will be home during the day who can support him. He stated that he also has neighbors who are very close by who are supportive and
helpful. Patient expressed no concerns about discharge. He stated that his Significant Other will provide transportation home. IMM signed and reviewed.
Plan: Case management will continue to follow and assist with discharge planning. Home with fiancee and outpatient PT as indicated by therapy staff.
[2024-06-04] MEDS: NOVOLOG FLEXPEN-LOW RESISTANCE SC (13:36)
[2024-06-04 13:45] VITALS: BP 127/81
--- NOTE | 2024-06-04 14:57 | W.DCSUMMARY ---
Discharge Summary
Discharge Data
Date of Admission: 06/01/24
Date of Discharge: 06/04/24
-
Pending Results: No
Hospital Course
43-year-old male with T2DM, GERD, HTN s/p T10-11 discectomy that presented to the hospital with acute on chronic back pain, acute radiculitis likely secondary to herniated nucleus pulposus. Was treated supportively continue with Tylenol, oxycodone,
Dilaudid as needed. Improved after lidocaine patch and Flexeril 3 times daily started. Was encouraged for out of bed activities. Interventional radiology was consulted for PING which was performed on 06/03/2024. Was discharged with referral for
pain management, 5-day course of oxycodone, course of Flexeril 3 times daily. Symptomatically improved prior to discharge. Referral given for PT as an outpatient
Discharge Plan
-
Patient Disposition: Home (Routine Discharge)
Discharge Diagnosis/Procedures: Intractable Back Pain likely secondary to lumbar radiculopathy 2/2 discogenic disease
Condition: Fair
Diet: Low Fat and Low Cholesterol
Activity: With assistance and As tolerated
Driving Restrictions: Avoid drivign while on opiates
Other Services: PT
Instructions: Lumbar spinal stenosis, Radiculopathy (DC)
Referrals:
Luis Felipe Parker DO [Non-Admitting Privileges] -
Christoph Rinaldi DO [Non-Admitting Privileges] - None (call to make appt-back pain)
Adis Lind MD [Family Provider] - in less than 1 week
Prescriptions:
New
cyclobenzaprine 10 mg Tablet
10 mg PO TID 14 Days Qty: 42 0RF
sennosides-docusate sodium 8.6-50 mg Tablet
1 tab PO BID 10 Days Qty: 20 0RF
oxycodone 5 mg capsule
5 mg PO Q8H PRN (Reason: severe pain) 5 Days Qty: 15 0RF
Continued
duloxetine 20 MG capsule,delayed release(DR/EC)
40 mg PO DAILY
atorvastatin 20 mg tablet
20 mg PO DAILY
lisinopril-hydrochlorothiazide 20-12.5 mg tablet
1 tab PO DAILY
acetaminophen 500 mg Tablet
1,000 mg PO Q6HPRN PRN (Reason: mild pain)
ibuprofen 200 mg Tablet
200 mg PO Q6HPRN PRN (Reason: mild pain)
omeprazole 20 mg capsule,delayed release(DR/EC)
20 mg PO DAILY
metformin 500 mg tablet extended release 24 hr
1,000 mg PO DAILY
Discharge Orders:
Discharge Patient (As Directed); Ordered 06/04/24
Ordered By: Peng Thomas
Discharge Date and Time
Discharge Date/Time: 06/04/24 14:20
Print Language: IVORIAN
== END 2024-06-04 14:20 | disposition home or self-care (01) | DRG 552 ==
LOC: 3 WEST ACU 11:51
PROVIDERS: Hospitalist; Physician Assistant; Physician Assistant Medical; Radiology Vascular & Interventional Radiology; ADMITTING PHYSICIAN Hospitalist; ATTENDING PHYSICIAN Internal Medicine; EMERGENCY PHYSICIAN Emergency Medicine; FAMILY PHYSICIAN Family Medicine
PROC: 3E0R33Z Introduction of Anti-inflammatory into Spinal Canal, Percutaneous Approach (ICD-10-PCS; 2024-06-03)
DX: M54.16 Radiculopathy, lumbar region (principal); Z68.41 Body mass index [BMI] 40.0-44.9, adult; I10 Essential (primary) hypertension; E78.5 Hyperlipidemia, unspecified; E11.9 Type 2 diabetes mellitus without complications; Z79.84 Long term (current) use of oral hypoglycemic drugs; F32.A Depression, unspecified; K21.9 Gastro-esophageal reflux disease without esophagitis; G89.29 Other chronic pain; Z98.1 Arthrodesis status; E66.01 Morbid (severe) obesity due to excess calories
CPT/HCPCS: 62323; 72100; 72146; 72148; 73502; 80048; 80053; 82962; 83036; 85025; 85610; 96372; 96374; 96375; 97116; 97163; 97167; 97530; 97535; 99284

== ENCOUNTER → 2024-07-02 13:28 | Outpatient (REF) | payer OTHER, SELFPAY ==
[2024-07-02 13:40] VITALS: BP 129/93; BP_SYST 99
[2024-07-02 14:38] VITALS: BP 119/84; BP_SYST 98
[2024-07-02 14:52] VITALS: BP 119/84
== END ==
LOC: RADI 13:28
PROVIDERS: ATTENDING PHYSICIAN Physician Assistant; FAMILY PHYSICIAN Family Medicine
DX: M54.16 Radiculopathy, lumbar region (principal)
CPT/HCPCS: 64483